=== PATIENT | male | born 1975 | race African-American/Black ===

== ENCOUNTER 2017-06-29 18:00 | Emergency (ER) | payer SELFPAY ==
[~2017-06-29 18:00] MED LIST: Z.0.NO CURRENT MEDS
[2017-06-29 18:01] VITALS: BP 105/65; PULSE 115; RESP 16; TEMP 101.1; O2SAT 97
[2017-06-29] MEDS ORDERED: IBUPROFEN 800 MG TAB PO ONE (18:30)
--- NOTE | 2017-06-29 18:54 | RADRPT ---
EXAM DATE/TIME: 06/29/2017 18:27 [place] COMPARISON: No previous studies available for comparison. INDICATIONS : Cough. Flu-like symptoms. MEDICAL HISTORY : None. SURGICAL HISTORY : None. ENCOUNTER: Initial ACUITY: 2 days PAIN SCORE: 1/10 LOCATION: Bilateral chest FINDINGS: PA and lateral views of the chest demonstrate the lungs to be symmetrically aerated without evidence of mass, infiltrate or effusion except for a density in the medial right middle lobe. The cardiomedi astinal contours are unremarkable. Osseous structures are intact. CONCLUSION: Normal examination except for a pleural-based density within the right middle lobe medially. It has a benign location and appearance on the lateral film. I don't believe is a pulmonary infiltrate. Outpa tient noncontrast chest CT is recommended. The rest of lungs are clearly unremarkable. Artis Fraser MD on June 29, 2017 at 18:51 Board Certified Radiologist. This report was verified electronically.
[2017-06-29 20:02] LABS: BASOPHIL % 0.9 % (0.0-2.0); EOSINOPHIL # 0.1 TH/MM3 (0-0.4); HEMATOCRIT 43.3 % (39.0-51.0); HEMOGLOBIN 15.1 GM/DL (13.0-17.0); LYMPHOCYTE # 1.1 TH/MM3 (1.0-4.8); MEAN CELL VOLUME 94.2 FL (80.0-100.0); MEAN CORPUSCULAR HEMOGLOBIN 32.8 PG (27.0-34.0); MEAN CORPUSCULAR HGB CONC 34.8 % (32.0-36.0); MEAN PLATELET VOLUME 7.4 FL (7.0-11.0); MONO % 21.4 % (0.0-8.0); MONOCYTE # 1.1 TH/MM3 (0-0.9); NEUT % 55.7 % (16.0-70.0); PLATELET COUNT 220 TH/MM3 (150-450); RED CELL DISTRIBUTION WIDTH 12.9 % (11.6-17.2); WHITE BLOOD COUNT 5.4 TH/MM3 (4.0-11.0)
[2017-06-29 20:25] LABS: BICARBONATE 30.1 MEQ/L (21.0-32.0); CALCIUM 9.1 MG/DL (8.5-10.1); CREATININE 1.34 MG/DL (0.60-1.30)
[2017-06-30] MEDS ORDERED: HUMIBIDDM PO (03:44)
[2017-06-30] MEDS ORDERED: ZOFR4TAB3 SL (03:44)
[2017-06-30] MEDS ORDERED: OSEL75 PO (03:44)
--- NOTE | 2017-06-30 20:01 | PD ---
HPI Chief Complaint: Cold / Flu Symptoms Time Seen by Provider: 18:18 Travel History International Travel<30 days: No Contact w/Intl Traveler<30days: No Traveled to known affect area: No History of Present Illness HPI Pt is a 42-year-old male tenting to the emergency department for evaluation of body aches, cough, abdominal discomfort, low grade fevers, nausea with no vomiting. Symptoms started yesterday. Onset was gradual. Patient reports subjective fevers and chills. He denies any vomiting, headache, chest pain, shortness of breath. Patient has not taken any medication to alleviate the pain. [facility] Past Medical History Medical History: Denies Significant Hx Social History Alcohol Use: Yes Tobacco Use: Yes Allergies-Medications (Allergen,Severity, Reaction): Coded Allergies: No Known Allergies (Unverified , 06/30/17) Reported Meds & Prescriptions Reported Meds & Active Scripts Active Mucinex DM (Dextromethorphan-Guaifenesin) 30-600 Mg Tab 1 Tab PO BID PRN 14 Days Zofran Odt (Ondansetron Odt) 4 Mg Tab 4 Mg SL Q6HR PRN Tamiflu (Oseltamivir Phosphate) 75 Mg Cap 75 Mg PO BID 5 Days Reported No Current Meds (Miscellaneous Medication) Misc Review of Systems Except as stated in HPI: all other systems reviewed are Neg General / Constitutional: Positive: Fever, Chills HENT: Positive: Congestion Cardiovascular: No: Chest Pain or Discomfort Respiratory: Positive: Cough, No: Shortness of Breath Gastrointestinal: Positive: Nausea, Abdominal Pain (discomfort), No: Vomiting Musculoskeletal: Positive: Myalgias Physical Exam Narrative GENERAL: Well-developed, well-nourished, alert male. Presenting in no acute distress. SKIN: Warm and dry. HEAD: Normocephalic. EYES: No scleral icterus. No injection or drainage. NECK: Supple, trachea midline. No JVD or lymphadenopathy. CARDIOVASCULAR: Regular rate RESPIRATORY: No accessory muscle use. Data Data Last Documented VS Vital Signs Date Time Temp Pulse Resp B/P (MAP) Pulse Ox O2 Delivery O2 Flow Rate FiO2 06/29/17 18:01 101.1 115 16 105/65 (78) 97 Orders Orders Complete Blood Count With Diff (06/29/17 18:20) Basic Metabolic Panel (Bmp) (06/29/17 18:20) Group A Rapid Strep Screen (06/29/17 18:20) Influenzae A/B Antigen (06/29/17 18:20) Chest, Pa & Lat (06/29/17 18:20) Ibuprofen (Motrin) (06/29/17 18:30) Strep Culture (Group A) (06/29/17 19:40) Labs Laboratory Tests Test 06/29/17 19:40 White Blood Count 5.4 TH/MM3 Red Blood Count 4.60 MIL/MM3 Hemoglobin 15.1 GM/DL Hematocrit 43.3 % Mean Corpuscular Volume 94.2 FL Mean Corpuscular Hemoglobin 32.8 PG Mean Corpuscular Hemoglobin Concent 34.8 % Red Cell Distribution Width 12.9 % Platelet Count 220 TH/MM3 Mean Platelet Volume 7.4 FL Neutrophils (%) (Auto) 55.7 % Lymphocytes (%) (Auto) 21.0 % Monocytes (%) (Auto) 21.4 % Eosinophils (%) (Auto) 1.0 % Basophils (%) (Auto) 0.9 % Neutrophils # (Auto) 3.0 TH/MM3 Lymphocytes # (Auto) 1.1 TH/MM3 Monocytes # (Auto) 1.1 TH/MM3 Eosinophils # (Auto) 0.1 TH/MM3 Basophils # (Auto) 0.0 TH/MM3 CBC Comment DIFF FINAL Differential Comment Blood Urea Nitrogen 13 MG/DL Creatinine 1.34 MG/DL Random Glucose 93 MG/DL Calcium Level 9.1 MG/DL Sodium Level 131 MEQ/L Potassium Level 4.5 MEQ/L Chloride Level 97 MEQ/L Carbon Dioxide Level 30.1 MEQ/L Anion Gap 4 MEQ/L Estimat Glomerular Filtration Rate 70 ML/MIN MDM Medical Decision Making Medical Screen Exam Complete: Yes Emergency Medical Condition: Yes Interpretation(s) Vital Signs Date Time Temp Pulse Resp B/P (MAP) Pulse Ox O2 Delivery O2 Flow Rate FiO2 06/29/17 18:01 101.1 115 16 105/65 (10) 97 Differential Diagnosis Influenza versus strep pharyngitis versus viral syndrome versus metabolic abnormality versus other Narrative Course Patient is a 42-year-old male presenting to emergency department for evaluation of cold and flulike symptoms that started yesterday. Patient was febrile on arrival, ibuprofen was ordered to address that. Patient was protocol in triage. He is awaiting bed placement. Despite fever patient appears well and in no acute distress. AMA: The risks of leaving against medical advice without further evaluation treatment were discussed with the patient. These risks include cardiac dysfunction, cardiac dysrhythmia, possible heart attack, possible stroke or . The patient indicated understanding of these risks and appeared to have the capacity to make this decision. Diagnosis Primary Impression: Left against medical advice Disposition: 07 AGAINST MEDICAL ADVICE Maria Fernanda Gomez Jun 30, 2017 20:01
== END 2017-06-29 23:17 | disposition left against medical advice (07) ==
LOC: NED 18:00
DX: R05 Cough (principal); R09.81 Nasal congestion; R11.0 Nausea; M79.1 Myalgia; Z72.0 Tobacco use; Z79.899 Other long term (current) drug therapy
CPT/HCPCS: 71046; 80048; 85025; 87081; 87804; 87880; 99284

== ENCOUNTER 2017-06-30 01:09 | Emergency (ER) | payer SELFPAY ==
[~2017-06-30] VITALS: Ht 167.6 cm; Wt 65.0 kg
[2017-06-30 01:11] VITALS: BP 117/61; PULSE 70; RESP 16; TEMP 98.2; O2SAT 96
[2017-06-30] MEDS ORDERED: OSEL75 PO (03:44)
[2017-06-30] MEDS ORDERED: ZOFR4TAB3 SL (03:44)
[2017-06-30] MEDS ORDERED: HUMIBIDDM PO (03:44)
--- NOTE | 2017-06-30 03:44 | PD ---
HPI Chief Complaint: Cold / Flu Symptoms Time Seen by Provider: 02:55 Travel History International Travel<30 days: No Contact w/Intl Traveler<30days: No Traveled to known affect area: No History of Present Illness HPI Patient is a 42-year-old male presents emergency department for evaluation of chills body aches cough and congestion for the past day and a half. Patient was here earlier today and left prior to receiving results, he did have a flu swab at that time which was positive. He denies any sputum production, denies any history of HIV hepatitis diabetes or shortness of breath. States the symptoms are moderate, gradually worsening, past day and a half, associated signs symptoms as above. PFSH Past Medical History Medical History: Denies Significant Hx Diminished Hearing: No Tetanus Vaccination: Unknown Influenza Vaccination: No Past Surgical History Surgical History: No Previous Surgery Social History Alcohol Use: Yes Tobacco Use: Yes Substance Use: No Allergies-Medications (Allergen,Severity, Reaction): Coded Allergies: No Known Allergies (Unverified , 06/30/17) Reported Meds & Prescriptions Reported Meds & Active Scripts Active Mucinex DM (Dextromethorphan-Guaifenesin) 30-600 Mg Tab 1 Tab PO BID PRN 14 Days Zofran Odt (Ondansetron Odt) 4 Mg Tab 4 Mg SL Q6HR PRN Tamiflu (Oseltamivir Phosphate) 75 Mg Cap 75 Mg PO BID 5 Days Reported No Current Meds (Miscellaneous Medication) Misc Review of Systems Except as stated in HPI: all other systems reviewed are Neg Physical Exam Narrative GENERAL: Well-developed well-nourished no obvious distress, nontoxic appearance. SKIN: Focused skin assessment warm/dry. HEAD: Atraumatic. Normocephalic. EYES: Pupils equal and round. No scleral icterus. No injection or drainage. ENT: No nasal bleeding or discharge. Mucous membranes pink and moist. TMs clear bilaterally, oropharynx clear moist NECK: Trachea midline. No JVD. CARDIOVASCULAR: Regular rate and rhythm. No murmur appreciated. RESPIRATORY: No accessory muscle use. Clear to auscultation. Breath sounds equal bilaterally. GASTROINTESTINAL: Abdomen soft, non-tender, nondistended. Hepatic and splenic margins not palpable. MUSCULOSKELETAL: No obvious deformities. No clubbing. No cyanosis. No edema. NEUROLOGICAL: Awake and alert. No obvious cranial nerve deficits. Motor grossly within normal limits. Normal speech. PSYCHIATRIC: Appropriate mood and affect; insight and judgment normal. Data Data Last Documented VS Orders Orders Ed Discharge Order (06/30/17 03:44) MDM Medical Decision Making Medical Screen Exam Complete: Yes Emergency Medical Condition: Yes Differential Diagnosis Influenza, pneumonia unlikely, severe bacterial illness unlikely. Narrative Course Patient roomed emergency department,. Nontoxic evidently stable and appears well. Flu test was positive and last was at the ER. He left without significant results. Discussed with the patient symptomatically management returned ED criteria. He is stable for discharge. Diagnosis Primary Impression: Influenza A Med/Other Pt SpecificInfo: Prescription(s) given Scripts Dextromethorphan-Guaifenesin (Mucinex DM) 30-600 Mg Tab 1 TAB PO BID Y for CHEST CONGESTION AND/OR COUGH for 14 Days, #28 TAB 0 Refills Prov: Clay Roblero MD 06/30/17 Ondansetron Odt (Zofran Odt) 4 Mg Tab 4 MG SL Q6HR Y for Nausea/Vomiting, #20 TAB 0 Refills Prov: Clay Roblero MD 06/30/17 Oseltamivir (Tamiflu) 75 Mg Cap 75 MG PO BID for Mgmt Viral Infection for 5 Days, #10 CAP 0 Refills Prov: Clay Roblero MD 06/30/17 Disposition: 01 DISCHARGE HOME Condition: Stable Clay Roblero MD Jun 30, 2017 03:44
[2017-06-30 03:51] VITALS: BP 118/66; PULSE 88; RESP 18; O2SAT 100
== END 2017-06-30 03:59 | disposition home or self-care (01) ==
LOC: NEPE 01:09
DX: J10.1 Influenza due to other identified influenza virus with other respiratory manifestations (principal)
CPT/HCPCS: 99284